=== PATIENT | male | born 1975 | race American Indian/Alaskan Native ===

== ENCOUNTER 2019-01-31 06:56 | Day surgery (SDC) | payer OTHER ==
[~2019-01-31] VITALS: Ht 180.3 cm; Wt 80.7 kg
[2019-01-31] MEDS ORDERED: LIDOCAINE 2% 100 MG/5 ML UJET TP ONE (09:59)
[2019-01-31] MEDS ORDERED: fentaNYL 0.05 MG/ML VIAL ONE (09:59)
[2019-01-31] MEDS ORDERED: fentaNYL 0.05 MG/ML VIAL IVP SCH (12:05)
== END 2019-01-31 10:51 | disposition home or self-care (01) ==
LOC: MDS 06:56 → MMU 06:57 → MDS 10:51
PROVIDERS: ATTEND Internal Medicine Gastroenterology
DX: R10.32 Left lower quadrant pain (principal); G43.909 Migraine, unspecified, not intractable, without status migrainosus; Z90.49 Acquired absence of other specified parts of digestive tract
CPT/HCPCS: 45378; J3010